=== PATIENT | male | born 1965 | race Caucasian/White ===

== ENCOUNTER → 2023-02-11 | Outpatient (CLI) | payer BC, SELFPAY ==
[2023-02-11 10:32] LABS: Microalbumin,Random Urine 18.8 mg/L (NO RANGE EST.); Microalbumin:Creatinine Ratio 7.2 mg/g CRE (<30 mg/g CRE)
[2023-02-11 10:56] LABS: Anion Gap 6 (5-15); BUN 18 mg/dL (7-18); BUN/Creat Ratio 18.1 RATIO (10-20); Chloride 107 mmol/L (98-107); Cholesterol 166 mg/dL (200); Creatinine, Serum 0.99 mg/dL (0.70-1.30); EST Glomerular Filtration Rate 82 mL/min (>60); Est Glom Filt Rate - Afr Amer 99 mL/min (>60); Glucose 101 mg/dL (74-106); High Density Lipoprotein 56 mg/dL; PSA,Total- Diagnostic 1.33 ng/mL (0.0-4.0); Potassium 3.9 mmol/L (3.5-5.1); Sodium Level 141 mmol/L (136-145); Thyroid Stim Hormone (TSH) 4.16 uIU/mL (0.358-3.74); Triglycerides 112 mg/dL; Very Low Density Lipoprotein 22 mg/dL (5-40)
== END | disposition home or self-care (01) ==
LOC: MTLAB 07:34
PROVIDERS: PCP Family Medicine; Referring Provider Family Medicine; Visit Provider Family Medicine
DX: Z00.00 Encounter for general adult medical examination without abnormal findings (principal); I10 Essential (primary) hypertension; Z12.5 Encounter for screening for malignant neoplasm of prostate; Z13.220 Encounter for screening for lipoid disorders
CPT/HCPCS: 36415; 80048; 80061; 82043; 82570; 84153; 84439; 84443

== ENCOUNTER 2025-08-23 17:00 | Outpatient (RCR) | payer BC, SELFPAY ==
--- NOTE | 2025-07-24 15:50 | HP.PTEVAL_ITS ---
Patient's Visit Information Visit Information Visit Information: VENKAT THOMAS is a 60 year old M referred to Physical Therapy by Dr. Agustin Gamboa MD with a diagnosis of L hip OA/muscle wasting/needs replacement. Date of Evaluation: 07/24/25 Physical Therapist: VAMSI Acevedo Visit Plan Frequency: 1-2x /Week Duration: 6 Weeks Plan: 1-2X/ week for 6 weeks to learn Indep HEP for L hip abd/ext and HS strength, core strength and some postural exercises HEP: clam shells, bridges, single leg bridges, squats to chair Subjective Subjective: Pt is bone on bone on the L. L leg is shorter than the R leg. He can not run since 2021. Recently he has gotten worse. The plan is to do a resurfacing of the hip. He saw a Dr at [facility] in June. He is planning on doing it early next year. He just had a bunch of x-ray. 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 He feels that his core is weak. He has a spacer on his shoe and biked for 40 miles. Stairs: he has no issue going up but coming down is an issue. He does not struggle with squatting. Putting socks on is bad due to lack or ROM Pain L hip pain: Pain Intensity (Out of 10): 0 Objective Objective: Gait: walks with increase limp on the L side due to significant L leg shorter than the R Pt is able to heel and toe raise without issue He has decreased L hip ER and IR rotation PROM and AROM compared to the R LE MMT: R hip flex 23.3 and L 18.7 R knee ext 23.3 and L 26.5 R knee flex 16 and L 16.1 R hip abd 16.4 and and L 13.3 R hip ext 15 and L 11.9 Balance/Special Test Scores Lower Extremity Functional Score: 52 Goals Goal 1:: I HEP for hip ext and hip abd strength, core strength and posture Goal Time Frame: 4-6 Weeks Goal 2:: Increase L hip ext and hip abd strength (at the time of the eval: R hip abd 16.4 and and L 13.3 R hip ext 15 and L 11.9) Goal Time Frame: 4-6 Weeks Goal 3:: Increase HS strength (at the time of the eval: R knee flex 16 and L 16.1). Goal Time Frame: 4-6 Weeks Rehabilitation Potential Rehabilitation Potential: Good Anticipated Interventions Patient/Client Instruction: Educate patient on: Condition and Plan of Care For the Purpose of:: To decrease pain, To increase ROM, To improve nutrient delivery to tissue, To improve muscle performance and motor function, To improve ability to perform ADL's, To increase tolerance to activity/condition/position, To improve gait and locomotor functions, To improve health of tissue and To decrease soft tissue restriction Therapeutic Exercise to Include: Strength training, Endurance training, Dynamic Lumbar Stabilization and Александр Exercises For the Purpose of:: To decrease pain, To improve muscle performance and motor function, To improve ability to perform ADL's, To increase tolerance to activity/condition/position and To improve health of tissue Functional Training to Include: Gait training For the Purpose of:: To improve gait and locomotor functions Text: Thank you for the opportunity to evaluate your patient. For Medicare and Medicare HMO plans, please review the plan of care and approve it. It will need to be FAXED BACK to us at [phone] for Medicare purposes. For Medicare only, by signing this I certify the plan of care. Please let me know if there are questions or concerns regarding this plan of care. Physician Signature: Date:
--- NOTE | 2025-08-23 18:56 | HP.PTDCSUM ---
Discharge Summary D/C summary: It has been my pleasure to treat VENKAT THOMAS referred by Dr. Agustin Gamboa MD, with the diagnosis of L hip OA/muscle wasting/needs replacement for a total of 3 visit(s). Discharge Date: 08/23/25 Please see the following information for a summary of their discharge status. Subjective Subjective: Pt reports that he is doing well and surgery will be end of Gianni Pain L hip pain: Pain Intensity (Out of 10): 0 Overall Improvement % Improvement: 80 Objective Objective/Function: Pt had full understanding of all exercises and instructed not to over do them Goals Goal 1:: I HEP for hip ext and hip abd strength, core strength and posture Goal Progress: Goal Met Goal 2:: Increase L hip ext and hip abd strength (at the time of the eval: R hip abd 16.4 and and L 13.3 R hip ext 15 and L 11.9) Goal 3:: Increase HS strength (at the time of the eval: R knee flex 16 and L 16.1). Plan Plan: DC PT to HEP D/C Information Discharge Comments: DC PT to HEP d/c sentence: If there are questions or concerns regarding this patient's physical therapy, please feel free to call me at [phone]. Thank you for the referral of this patient. Sincerely, Johanny Vásquez, MPT Balance/Gait/Functional tests Balance/Special Test Scores Lower Extremity Functional Score: 52 Improvement % Improvement: 80
== END 2025-08-23 19:00 | disposition home or self-care (01) ==
LOC: PT 17:00
PROVIDERS: PCP Family Medicine; Referring Provider Family Medicine; Visit Provider Family Medicine
DX: M16.12 Unilateral primary osteoarthritis, left hip (principal); M62.50 Muscle wasting and atrophy, not elsewhere classified, unspecified site
CPT/HCPCS: 97110; 97161; 97530